=== PATIENT | male | born 1980 | race Caucasian/White ===

== ENCOUNTER 2018-07-21 05:15 | Day surgery (SDC) | payer OTHER ==
[2018-07-20 15:12] LABS: BASOPHILS % (AUTO) 0.3 % (0-1); EOSINOPHILS # (AUTO) 0.2 X10'3 (0-0.9); EOSINOPHILS % (AUTO) 2.2 % (0-6); LYMPHOCYTES # (AUTO) 1.7 X10'3 (1.1-4.8); LYMPHOCYTES % (AUTO) 21.8 % (21-51); MEAN CORPUSCULAR HGB CONC 33.7 % (33.0-36.5); MEAN PLATELET VOLUME 8.9 FL (7.4-10.4); MONOCYTES # (AUTO) 0.8 X10'3 (0-0.9); MONOCYTES % (AUTO) 9.9 % (2-12); NEUTROPHILS # (AUTO) 5.2 X10'3 (1.8-7.7); NEUTROPHILS % (AUTO) 65.8 % (42-75); PRE OP HEMATOCRIT 45.3 % (42.0-52.0); PRE OP HEMOGLOBIN 15.3 g/dL (14.0-17.9); PRE OP PLATELET COUNT 239 X10'3 (140-440); RED BLOOD COUNT 5.09 X10'6 (4.70-6.10); RED CELL DISTRIBUTION WIDTH 12.7 % (11.5-14.5)
[2018-07-20 15:40] LABS: ALBUMIN/GLOBULIN RATIO 1.3 (1.1-1.5); ALKALINE PHOSPHATASE 49 IU/L (46-116); BLOOD UREA NITROGEN 11 MG/DL (7-18); CALCIUM 8.7 MG/DL (8.5-10.1); CHLORIDE 104 MMOL/L (99-107); PRE OP ALT 61 U/L (30-65); PRE OP ANION GAP 7 (8-16); PRE OP AST 25 U/L (10-37); PRE OP BILIRUB, TOTAL 0.3 MG/DL (0.0-1.0); PRE OP GLUCOSE 77 MG/DL (70-104); PRE OP POTASSIUM 3.9 MMOL/L (3.4-5.1); PRE OP SODIUM 139 MMOL/L (135-145); TOTAL PROTEIN 7.2 G/DL (6.4-8.2); eGFR 85 ML/MIN
[2018-07-21] VITALS (8 sets, daily range): BP systolic 116–134; BP diastolic 68–89
[~2018-07-21] VITALS: Ht 170.2 cm; Wt 113.4 kg
[~2018-07-21 05:15] MED LIST: NO HOME MEDS; ringers solution, lacted 1,000 ML IV SCH
[2018-07-21] MEDS ORDERED: famotidine 20mg tablet PO ONE (05:30)
[2018-07-21] MEDS ORDERED: VANCOMYCIN INJ 1000 MG in NORMAL SALINE 250ml IV.SOLN IV ONE (05:30)
[2018-07-21] MEDS ORDERED: cefazolin/dext.iso 2gm/100 ML IV ONE (05:30)
[2018-07-21] MEDS ORDERED: tranexamic acid inj. 1,150 MG in normal saline 100ml IV soln 88.5 ML IV ONE ×2 (05:30→06:00)
[2018-07-21] MEDS ORDERED: LIDOcaine 1% (10mg/ml) 2ml vial ONE (05:51)
[2018-07-21] MEDS ORDERED: BUPIVAcaine/PF 2.5mg/ml (0.25%) 10ml vial ONE (06:42)
[2018-07-21] MEDS ORDERED: cloNIDine hcl/PF 100mcg/ml inj ONE (07:02)
[2018-07-21] MEDS ORDERED: ROPIVAcaine 0.5% (5mg/ml) 30ml vial ONE (07:02)
[2018-07-21] MEDS ORDERED: sevoflurane 250ml liquid IH ONE (07:03)
[2018-07-21] MEDS ORDERED: fentaNYL/PF 50MCG/1 ML 2ML syringe ONE (07:07)
[2018-07-21] MEDS ORDERED: midazolam 2 mg/2 ml injection ONE (07:07)
[2018-07-21] MEDS ORDERED: LIDOcaine 2% (20mg/ml) 5ml vial ONE (07:07)
[2018-07-21] MEDS ORDERED: propofol inj 20 ML IV ONE (07:07)
[2018-07-21] MEDS ORDERED: dexamethasone sod phosphate 4mg/ml inj. ONE (07:08)
[2018-07-21] MEDS ORDERED: ondansetron/PF 4mg/2ml inj ONE (07:08)
[2018-07-21] MEDS ORDERED: ringers solution, lacted 1,000 ML IV SCH (07:49)
[2018-07-21] MEDS ORDERED: morphine 4 MG/ML inj SYRINge IV PRN ×2 (07:50)
[2018-07-21] MEDS ORDERED: hydrALAZINE 20mg/ml inj. IV PRN (07:50)
[2018-07-21] MEDS ORDERED: enalaprilat dihydrate 2.5mg/2ml vial IV PRN (07:50)
[2018-07-21] MEDS ORDERED: fentaNYL/PF 50MCG/1 ML 2ML syringe IV PRN ×2 (07:50)
[2018-07-21] MEDS ORDERED: ondansetron/PF 4mg/2ml inj IV PRN (07:50)
[2018-07-21] MEDS ORDERED: HYDROcodone/acetaminophen 10/325mg tab PO PRN (08:35)
== END 2018-07-21 09:45 | disposition home or self-care (01) ==
LOC: PAS 05:15
PROVIDERS: ATTEND Orthopaedic Surgery
DX: M75.41 Impingement syndrome of right shoulder (principal); M19.011 Primary osteoarthritis, right shoulder; M75.51 Bursitis of right shoulder; M25.711 Osteophyte, right shoulder; M65.811 Other synovitis and tenosynovitis, right shoulder; G89.29 Other chronic pain; G89.18 Other acute postprocedural pain; E66.9 Obesity, unspecified; G47.33 Obstructive sleep apnea (adult) (pediatric); Z88.5 Allergy status to narcotic agent; Z88.6 Allergy status to analgesic agent; Z68.39 Body mass index [BMI] 39.0-39.9, adult; Z72.89 Other problems related to lifestyle; Z88.2 Allergy status to sulfonamides; Z79.891 Long term (current) use of opiate analgesic; Z88.8 Allergy status to other drugs, medicaments and biological substances; Z79.899 Other long term (current) drug therapy; Z98.890 Other specified postprocedural states
CPT/HCPCS: 29824; 29826; 36415; 64450; 80053; 85025; A6449; J0690; J0735; J1100; J2001; J2250; J2405; J2704; J3010; J3370; J3490; J7120; A4565; A7000; J2795; J7030

== ENCOUNTER → 2020-04-03 | Day surgery (SDC) | payer OTHER ==
[2020-03-29 12:22] LABS: BASOPHILS % (AUTO) 0.3 % (0-1); EOSINOPHILS # (AUTO) 0.1 X10'3 (0-0.9); EOSINOPHILS % (AUTO) 1.4 % (0-6); LYMPHOCYTES # (AUTO) 1.5 X10'3 (1.1-4.8); LYMPHOCYTES % (AUTO) 22.7 % (21-51); MEAN CORPUSCULAR HEMOGLOBIN 30.8 PG (27.0-31.0); MEAN CORPUSCULAR HGB CONC 34.3 g/dL (33.0-36.5); MEAN CORPUSCULAR VOLUME 89.7 FL (78-98); MEAN PLATELET VOLUME 8.9 FL (7.4-10.4); MONOCYTES # (AUTO) 0.6 X10'3 (0-0.9); MONOCYTES % (AUTO) 8.5 % (2-12); NEUTROPHILS # (AUTO) 4.6 X10'3 (1.8-7.7); NEUTROPHILS % (AUTO) 67.1 % (42-75); PRE OP HEMOGLOBIN 15.8 g/dL (14.0-17.9); PRE OP PLATELET COUNT 247 X10'3 (140-440); RED BLOOD COUNT 5.13 X10'6 (4.70-6.10); RED CELL DISTRIBUTION WIDTH 12.9 % (11.5-14.5)
[2020-03-29 12:38] LABS: ALBUMIN 4.4 G/DL (3.4-5.0); ALBUMIN/GLOBULIN RATIO 1.3 (1.1-1.5); ALKALINE PHOSPHATASE 51 IU/L (46-116); BLOOD UREA NITROGEN 18 MG/DL (7-18); BUN/CREATININE RATIO 13.7 (5.4-32.0); CALCIUM 9.2 MG/DL (8.5-10.1); CHLORIDE 105 MMOL/L (99-107); CREATININE 1.31 MG/DL (0.60-1.10); PRE OP ALT 65 U/L (30-65); PRE OP ANION GAP 10 (8-16); PRE OP AST 35 U/L (10-37); PRE OP BILIRUB, TOTAL 0.9 MG/DL (0.0-1.0); PRE OP GLUCOSE 86 MG/DL (70-104); PRE OP POTASSIUM 4.3 MMOL/L (3.4-5.1); PRE OP SODIUM 142 MMOL/L (135-145); TOTAL CARBON DIOXIDE 26.9 MMOL/L (24-32); TOTAL PROTEIN 7.9 G/DL (6.4-8.2); eGFR 62 ML/MIN
[2020-04-03] VITALS (12 sets, daily range): BP systolic 123–148; BP diastolic 66–90
[~2020-04-03] VITALS: Ht 172.7 cm; Wt 117.0 kg
[~2020-04-03] MED LIST changes: +BUPIVAcaine/PF 2.5mg/ml (0.25%) 10ml vial ONE; +HYDROcodone/acetaminophen 10/325mg tab PO PRN; +LIDOcaine 1% (10mg/ml) 2ml vial ONE; +LIDOcaine 2% (20mg/ml) 5ml vial ONE; +MIDAZolam 5mg/5ml vial ONE; +ROPIVAcaine 0.2% (10 MG/5 ML) BOLUS INJECTION INTERSCALE PRN; +ROPIVAcaine 0.2%/PF PUMP/bolus 550 ML INTERSCALE SCH; +ROPIVAcaine 0.5% (5mg/ml) 30ml vial ONE; +acetaminophen 1,000mg/100ml IV 100 ML IV ONE; +ceFAZolin 2gm in dextrose, iso 50 ML IV ONE; +dexamethasone sod phosphate 4mg/ml inj. ONE; +famotidine 20mg tablet PO ONE; +fentaNYL/PF 50MCG/1 ML 2ML syringe ONE; +meperidine/PF 25mg/ml syringe IV PRN; +morphine 2 MG/ML inj. syringe IV PRN; +morphine 4 MG/ML inj SYRINge IV PRN; +ondansetron/PF 4mg/2ml inj IV PRN; +ondansetron/PF 4mg/2ml inj ONE; +proCHLORperazine 10 MG/2 ml inj IV PRN; +propofol inj 20 ML IV ONE; +sevoflurane 250ml liquid IH ONE
--- NOTE | 2020-04-03 09:16 | NUR ---
RECEIVED FROM OR VIA BED ACCOMPANIED BY ANESTHESIOLOGIST DR TRINIDAD, REPORT GIVEN. 20 GAUGE PIV L AC PATENT AND RUNNING LR AT 100 ML/HR. MEDIUM ISLAND DRESSING R SHOULDER X2 CDI. PERIPHERAL PULSES PRESENT, SKIN PINK AND WAR,. GOOD CAP REFILL, ABD SOFT, DENIES PAIN, RESTIN COMFORTABLY AT THIS TIME.
--- NOTE | 2020-04-03 11:06 | NUR ---
TRANSPORTED TO ORTHO FLOOR VIA BED WITH OHTF, REPORT GIVEN. 20 GAUGE PIV L AC PATENT AND RUNNING LR AT 100 ML/HR. MEDIUM ISLAND DRESSING R SHOULDER X2 CDI. PERIPHERAL PULSES PRESENT, SKIN PINK AND WARM. GOOD CAP REFILL, ABD SOFT, DENIES PAIN, RESTING COMFORTABLY AT THIS TIME. ON Q PUMP HOOKED UP AND RUNNING. LEFT IN CARE OF ORTHO NURSE WITH BED RAILS UP
== END | disposition home or self-care (01) ==
LOC: PAS 05:47
PROVIDERS: ATTEND Orthopaedic Surgery
DX: M75.21 Bicipital tendinitis, right shoulder (principal); M65.811 Other synovitis and tenosynovitis, right shoulder; Z88.2 Allergy status to sulfonamides; Z88.8 Allergy status to other drugs, medicaments and biological substances; M19.011 Primary osteoarthritis, right shoulder; Z79.899 Other long term (current) drug therapy; Z98.890 Other specified postprocedural states
CPT/HCPCS: 29828; 36415; 80053; 82948; 85025; 93005; C1713; J0131; J1100; J2001; J2250; J2405; J2704; J2795; J3010; J3490; J7120; U0003; A4565; A4618; A6449; A7000

== ENCOUNTER 2020-04-05 22:08 | Emergency (ER) | payer OTHER ==
[~2020-04-05] VITALS: Ht 172.7 cm; Wt 114.3 kg
--- NOTE | 2020-04-05 22:24 | NUR ---
PT REPORTS HIS HICCUPS, THAT HAD BEEN GONG ON NON STOP SNCE 3 THIS AFTERNOON, STOPPED WHEN HE ARRIVED HER AT THE er.
[2020-04-05 22:47] VITALS: BP 124/83
== END 2020-04-05 22:49 | disposition home or self-care (01) ==
LOC: ER 22:08
DX: R06.6 Hiccough (principal); Z98.890 Other specified postprocedural states; Z88.2 Allergy status to sulfonamides; Z88.6 Allergy status to analgesic agent; Z88.8 Allergy status to other drugs, medicaments and biological substances
CPT/HCPCS: 93005; 99283

== ENCOUNTER 2022-03-12 05:35 | Day surgery (SDC) | payer OTHER ==
[2022-03-06 15:41] LABS: BASOPHILS % (AUTO) 0.4 % (0-1); EOSINOPHILS # (AUTO) 0.1 X10'3 (0-0.9); EOSINOPHILS % (AUTO) 1.4 % (0-6); LYMPHOCYTES % (AUTO) 26.9 % (21-51); MEAN CORPUSCULAR HGB CONC 34.1 g/dL (33.0-36.5); MEAN CORPUSCULAR VOLUME 88.2 FL (78-98); MEAN PLATELET VOLUME 8.7 FL (7.4-10.4); MONOCYTES # (AUTO) 0.7 X10'3 (0-0.9); MONOCYTES % (AUTO) 8.7 % (2-12); NEUTROPHILS # (AUTO) 4.7 X10'3 (1.8-7.7); NEUTROPHILS % (AUTO) 62.6 % (42-75); PRE OP HEMATOCRIT 44.2 % (42.0-52.0); PRE OP PLATELET COUNT 239 X10'3 (140-440); RED BLOOD COUNT 5.01 X10'6 (4.70-6.10); RED CELL DISTRIBUTION WIDTH 13.3 % (11.5-14.5)
[2022-03-06 15:54] LABS: ALBUMIN 4.2 G/DL (3.4-5.0); ALBUMIN/GLOBULIN RATIO 1.4 (1.1-1.5); ALKALINE PHOSPHATASE 45 IU/L (46-116); BLOOD UREA NITROGEN 17 MG/DL (7-18); BUN/CREATININE RATIO 15.3 (5.4-32.0); CALCIUM 9.2 MG/DL (8.5-10.1); CHLORIDE 104 MMOL/L (99-107); CREATININE 1.11 MG/DL (0.60-1.10); PRE OP ALT 49 U/L (30-65); PRE OP ANION GAP 9 (8-16); PRE OP AST 24 U/L (10-37); PRE OP BILIRUB, TOTAL 0.5 MG/DL (0.0-1.0); PRE OP GLUCOSE 90 MG/DL (70-104); PRE OP SODIUM 139 MMOL/L (135-145); TOTAL CARBON DIOXIDE 25.8 MMOL/L (24-32); TOTAL PROTEIN 7.3 G/DL (6.4-8.2); eGFR 74 ML/MIN
[~2022-03-12] VITALS: Ht 172.7 cm; Wt 117.2 kg
[2022-03-12] VITALS (8 sets, daily range): BP systolic 116–142; BP diastolic 64–102
[~2022-03-12 05:35] MED LIST changes: -BUPIVAcaine/PF 2.5mg/ml (0.25%) 10ml vial ONE; -HYDROcodone/acetaminophen 10/325mg tab PO PRN; -LIDOcaine 1% (10mg/ml) 2ml vial ONE; -LIDOcaine 2% (20mg/ml) 5ml vial ONE; -MIDAZolam 5mg/5ml vial ONE; -ROPIVAcaine 0.2% (10 MG/5 ML) BOLUS INJECTION INTERSCALE PRN; -ROPIVAcaine 0.2%/PF PUMP/bolus 550 ML INTERSCALE SCH; -ROPIVAcaine 0.5% (5mg/ml) 30ml vial ONE; -acetaminophen 1,000mg/100ml IV 100 ML IV ONE; -ceFAZolin 2gm in dextrose, iso 50 ML IV ONE; +ceFAZolin inj. 2,000 MG in dextrose 5%-water 100 ML IV ONE; -dexamethasone sod phosphate 4mg/ml inj. ONE; -fentaNYL/PF 50MCG/1 ML 2ML syringe ONE; -meperidine/PF 25mg/ml syringe IV PRN; -morphine 2 MG/ML inj. syringe IV PRN; -morphine 4 MG/ML inj SYRINge IV PRN; -ondansetron/PF 4mg/2ml inj IV PRN; -ondansetron/PF 4mg/2ml inj ONE; -proCHLORperazine 10 MG/2 ml inj IV PRN; -propofol inj 20 ML IV ONE; -sevoflurane 250ml liquid IH ONE
[2022-03-12] MEDS ORDERED: ROPIVAcaine 0.5% (5mg/ml) 30ml vial ONE (07:03)
[2022-03-12] MEDS ORDERED: midazolam 1 mg/ML 2ml injection ONE (07:08)
[2022-03-12] MEDS ORDERED: fentaNYL/PF 50MCG/1 ML 2ML syringe ONE (07:08)
[2022-03-12] MEDS ORDERED: propofol inj 20 ML IV ONE (07:09)
[2022-03-12] MEDS ORDERED: ondansetron/PF 4mg/2ml inj ONE (07:09)
[2022-03-12] MEDS ORDERED: LIDOcaine 2% (20mg/ml) 5ml vial ONE (07:09)
[2022-03-12] MEDS ORDERED: dexamethasone sod phosphate 4mg/ml inj. ONE (07:09)
[2022-03-12] MEDS ORDERED: BUPIVAcaine 0.5% inj/PF 30 ML ONE (07:11)
[2022-03-12] MEDS ORDERED: fentaNYL/PF 50MCG/1 ML 2ML syringe IV PRN ×2 (07:15)
[2022-03-12] MEDS ORDERED: labetalol 20mg/4ml (5mg/ml) syringe IV PRN (07:15)
[2022-03-12] MEDS ORDERED: morphine 2 MG/ML inj. syringe IV PRN (07:15)
[2022-03-12] MEDS ORDERED: morphine 4 MG/ML inj SYRINge IV PRN (07:15)
[2022-03-12] MEDS ORDERED: ondansetron/PF 4mg/2ml inj IV PRN (07:15)
[2022-03-12] MEDS ORDERED: hydrALAZINE 20mg/ml inj. IV PRN (07:15)
[2022-03-12] MEDS ORDERED: ringers solution, lacted 1,000 ML IV SCH (07:15)
[2022-03-12] MEDS ORDERED: sevoflurane 250ml liquid IH ONE (07:27)
--- NOTE | 2022-03-12 09:10 | NUR ---
Received from OR via [facility], accompanied by Anesthesiologist DR. HUNTLEY and report given by Anesthesiologist AND OR NURSE. PT ARRIVED AWAKE ON ROOM AIR. VSS. DENIES PAIN OR NAUSEA. DRESSING TO LEFT SHOULDER C/D/I WITH IMMOBILIZER SLING ON . CAP REFILL WNL. ICE APPLIED. IV RUNNING LR TO 20 G IV TO RIGHT HAND. WILL CONTINUE TO MONITOR. SCD ON.
[2022-03-12] MEDS ORDERED: HYDROcodone/acetaminophen 10/325mg tab PO ONE (09:50)
[2022-03-12] MEDS ORDERED: HYDROcodone/acetaminophen 10/325mg tab PO PRN (09:55)
--- NOTE | 2022-03-12 10:10 | NUR ---
PATIENT A&OX4, VSS. DENIES PAIN OR NAUSEA. DRESSING TO LEFT SHOULDER C/D/I WITH IMMOBILIZER SLING ON . CAP REFILL WNL. ICE APPLIED. IV D/C,. SCD OFF. I HAVE REVIEWED D/C INSTRUCTIONS WITH PATIENT AND HE HAS VERBALIZED UNDERSTANDING. PATIENT D/C HOME WITH ALL BELONGINGS AND GAVE TRANSPORT.
== END 2022-03-12 10:10 | disposition home or self-care (01) ==
LOC: PAS 05:35
PROVIDERS: ATTEND Orthopaedic Surgery
DX: M19.012 Primary osteoarthritis, left shoulder (principal); M75.42 Impingement syndrome of left shoulder; M75.52 Bursitis of left shoulder; M16.0 Bilateral primary osteoarthritis of hip; G47.30 Sleep apnea, unspecified; G89.18 Other acute postprocedural pain; E66.01 Morbid (severe) obesity due to excess calories; Z68.39 Body mass index [BMI] 39.0-39.9, adult; Z98.890 Other specified postprocedural states; Z88.8 Allergy status to other drugs, medicaments and biological substances; Z88.2 Allergy status to sulfonamides; Z79.899 Other long term (current) drug therapy; Z72.89 Other problems related to lifestyle
CPT/HCPCS: 23120; 23130; 29822; 36415; 64415; 76942; 80053; 82948; 85025; J0690; J1100; J2250; J2405; J2704; J2795; J3010; J3490; J7030; J7060; J7120; S0020; Z7506; Z7508; Z7512; A4618; A6449; A7000

== ENCOUNTER 2022-04-26 12:09 | Emergency (ER) | payer OTHER ==
[~2022-04-26] VITALS: Ht 172.7 cm; Wt 113.6 kg
[~2022-04-26 12:09] MED LIST changes: +LACT1CAP26 PO; -NO HOME MEDS; -ceFAZolin inj. 2,000 MG in dextrose 5%-water 100 ML IV ONE; -famotidine 20mg tablet PO ONE; -ringers solution, lacted 1,000 ML IV SCH
[2022-04-26 12:33] VITALS: BP 144/81
[2022-04-26 14:45] LABS: BASOPHILS % (AUTO) 0.4 % (0-1); EOSINOPHILS # (AUTO) 0.2 X10'3 (0-0.9); EOSINOPHILS % (AUTO) 2.1 % (0-6); HEMATOCRIT 40.3 % (42.0-52.0); HEMOGLOBIN 14.1 g/dl (14.0-17.9); LYMPHOCYTES # (AUTO) 1.6 X10'3 (1.1-4.8); LYMPHOCYTES % (AUTO) 21.8 % (21-51); MEAN CORPUSCULAR HEMOGLOBIN 30.4 PG (27.0-31.0); MEAN CORPUSCULAR HGB CONC 34.9 g/dL (33.0-36.5); MEAN CORPUSCULAR VOLUME 87.1 FL (78-98); MEAN PLATELET VOLUME 8.1 FL (7.4-10.4); MONOCYTES # (AUTO) 0.5 X10'3 (0-0.9); MONOCYTES % (AUTO) 7.3 % (2-12); NEUTROPHILS # (AUTO) 5.2 X10'3 (1.8-7.7); NEUTROPHILS % (AUTO) 68.4 % (42-75); PLATELET COUNT 279 X10'3 (140-440); RED BLOOD COUNT 4.63 X10'6 (4.70-6.10); WHITE BLOOD COUNT 7.5 X10'3 (4.5-11.0)
--- NOTE | 2022-04-26 14:53 | NUR ---
wound culture collected at this time from left shoulder
[2022-04-26 14:56] LABS: ALANINE AMINOTRANSFERASE 36 U/L (12-78); ALBUMIN 4.1 G/DL (3.4-5.0); ALBUMIN/GLOBULIN RATIO 1.1 (1.1-1.5); ALKALINE PHOSPHATASE 60 IU/L (46-116); ANION GAP 10 (8-16); ASPARTATE AMINO TRANSFERASE 30 U/L (10-37); BILIRUBIN,TOTAL 0.4 MG/DL (0.1-1.0); BLOOD UREA NITROGEN 19 MG/DL (7-18); BUN/CREATININE RATIO 18.3 (5.4-32.0); CALCIUM 9.1 MG/DL (8.5-10.1); CHLORIDE 106 MMOL/L (99-107); CREATININE 1.04 MG/DL (0.60-1.10); GLUCOSE 118 MG/DL (70-104); POTASSIUM 3.8 MMOL/L (3.5-5.1); SODIUM 140 MMOL/L (135-145); TOTAL CARBON DIOXIDE 24.5 MMOL/L (24-32); TOTAL PROTEIN 7.8 G/DL (6.4-8.2); eGFR 80 ML/MIN
--- NOTE | 2022-04-26 16:14 | NUR ---
wound redressed, cleared for dishcarge
== END 2022-04-26 16:15 | disposition home or self-care (01) ==
LOC: ER 12:10
DX: Z48.89 Encounter for other specified surgical aftercare (principal); Z88.2 Allergy status to sulfonamides; Z88.5 Allergy status to narcotic agent
CPT/HCPCS: 36415; 80053; 85025; 87070; 99283; A6258

== ENCOUNTER 2022-05-16 21:28 | Emergency (ER) | payer OTHER ==
[~2022-05-16] VITALS: Ht 172.7 cm; Wt 113.6 kg
[2022-05-16 22:17] LABS: BASOPHILS % (AUTO) 0.6 % (0-1); EOSINOPHILS # (AUTO) 0.3 X10'3 (0-0.9); EOSINOPHILS % (AUTO) 3.5 % (0-6); HEMATOCRIT 40.3 % (42.0-52.0); LYMPHOCYTES # (AUTO) 2.1 X10'3 (1.1-4.8); LYMPHOCYTES % (AUTO) 27.8 % (21-51); MEAN CORPUSCULAR HEMOGLOBIN 30.4 PG (27.0-31.0); MEAN CORPUSCULAR HGB CONC 34.7 g/dL (33.0-36.5); MEAN CORPUSCULAR VOLUME 87.6 FL (78-98); MEAN PLATELET VOLUME 8.3 FL (7.4-10.4); MONOCYTES # (AUTO) 0.6 X10'3 (0-0.9); NEUTROPHILS # (AUTO) 4.5 X10'3 (1.8-7.7); NEUTROPHILS % (AUTO) 60.1 % (42-75); PLATELET COUNT 217 X10'3 (140-440); RED CELL DISTRIBUTION WIDTH 12.9 % (11.5-14.5); WHITE BLOOD COUNT 7.5 X10'3 (4.5-11.0)
[2022-05-16 22:42] LABS: ALANINE AMINOTRANSFERASE 34 U/L (12-78); ALBUMIN 4.1 G/DL (3.4-5.0); ALBUMIN/GLOBULIN RATIO 1.2 (1.1-1.5); ALKALINE PHOSPHATASE 48 IU/L (46-116); ANION GAP 11 (8-16); ASPARTATE AMINO TRANSFERASE 30 U/L (10-37); BILIRUBIN,TOTAL 0.4 MG/DL (0.1-1.0); BLOOD UREA NITROGEN 16 MG/DL (7-18); CALCIUM 8.7 MG/DL (8.5-10.1); CHLORIDE 106 MMOL/L (99-107); CREATININE 1.14 MG/DL (0.60-1.10); GLUCOSE 103 MG/DL (70-104); POTASSIUM 3.4 MMOL/L (3.5-5.1); SODIUM 141 MMOL/L (135-145); TOTAL CARBON DIOXIDE 23.6 MMOL/L (24-32); TOTAL PROTEIN 7.4 G/DL (6.4-8.2); eGFR 72 ML/MIN
[2022-05-17 02:37] VITALS: BP 123/77
== END 2022-05-17 03:01 | disposition home or self-care (01) ==
LOC: ER 21:29
DX: R07.89 Other chest pain (principal); Z88.2 Allergy status to sulfonamides; Z88.5 Allergy status to narcotic agent
CPT/HCPCS: 36415; 80053; 83605; 84145; 84484; 85025; 87040; 93005; 99284